=== PATIENT | female | born 1945 | race Caucasian/White ===

== ENCOUNTER 2016-09-29 10:15 | Emergency (ER) | payer MEDICARE, MEDICAID ==
[2016-09-29] MEDS ORDERED: Ketorolac INJ* 30 MG/ML 1 ML VIAL IV PUSH ONE (10:53)
[2016-09-29] MEDS ORDERED: NS 0.9% 1000 ML* 1,000 ML IV ONE (10:53)
--- NOTE | 2016-09-29 11:26 | RAD ---
CLINICAL HISTORY: Right flank pain COMPARISON: None TECHNIQUE: Multiple contiguous axial CT scans were obtained of the abdomen and pelvis, without intravenous contrast enhancement. Coronal and sagittal multiplanar reformations are submitted for review. Oral contrast was not administered. FINDINGS: The study is limited by the lack of intravenous contrast. This limits evaluation of the solid organs and vasculature. LUNG BASES: The lung bases are clear. LIVER: Multiple hepatic cysts are noted. The largest measure simple fluid in attenuation BILE DUCTS: There is no intrahepatic or extrahepatic biliary dilatation. GALLBLADDER: The gallbladder is normal, without pericholecystic inflammatory change. PANCREAS: The pancreas is normal, without mass or ductal dilatation. SPLEEN: Normal in size and appearance. UPPER GI TRACT: Evaluation of the gastrointestinal tract is limited by incomplete gastric distention. The upper GI tract is unremarkable. SMALL BOWEL AND MESENTERY: The small bowel is normal in contour, course, and caliber. There is no obstruction or dilatation. COLON: The colon is normal in contour, course, caliber. There is no pericolonic inflammatory change. ADRENALS: Normal bilaterally. KIDNEYS: There are bilateral renal calyceal stones measuring up to 0.5 cm in size. There is no appreciable hydronephrosis BLADDER: The bladder is smooth in contour. PELVIC ORGANS: The uterus and adnexa are grossly normal for technique. AORTA: There is calcific atherosclerotic disease of the abdominal aorta and its branches, without aneurysmal dilatation IVC: Unremarkable LYMPH NODES: There is no lymphadenopathy by size criteria. ABDOMINAL WALL: There is no evidence for abdominal wall hernia. BONES AND SOFT TISSUES: There is diffuse osteopenia. Degenerative changes are noted of the spine, with narrowing of central canal at L3-L4, L4-L5, and to a lesser extent at L5-S1 OTHER: None IMPRESSION: BILATERALLY NEPHROLITHIASIS WITHOUT HYDRONEPHROSIS.
[2016-09-29 11:30] LABS: Hematocrit 38 % (35-47); Mean Corpuscular HGB Conc 34 g/dl (31-36); Mean Corpuscular Hemoglobin 30 pg (27-31); Mean Corpuscular Volume 88 fL (80-97); Mean Platelet Volume 9 um3 (7.4-10.4); Red Blood Count 4.34 10^6/ul (4.0-5.4); Red Cell Distribution Width 13 % (10.5-15)
[2016-09-29 11:36] LABS: Urine Bacteria Absent (Absent); Urine Bilirubin Negative (Negative); Urine Glucose Negative (Negative); Urine Nitrite Negative (Negative)
[2016-09-29 11:50] LABS: BUN/Creatinine Ratio 19.9 (8-20); Potassium 3.9 mmol/L (3.5-5.0)
[2016-09-29 11:51] LABS: Albumin 3.7 g/dL (3.2-5.2); C Reactive Protein 1.31 mg/L (< 5.00); Calcium 8.8 mg/dL (8.6-10.3); EGFR African American 29.5 (>60); Globulin 2.4 g/dL (2-4); Total Bilirubin 0.4 mg/dL (0.2-1.0); Total Protein 6.1 g/dL (6.4-8.9)
[2016-09-29] MEDS ORDERED: Morphine INJ* 4 MG/ML 1 ML SYRINGE IV ONE (12:09)
[2016-09-29] MEDS ORDERED: LORazepam TAB(*) 1 MG PO ONE (13:37)
[2016-09-29 14:24] VITALS: BP 125/74
--- NOTE | 2016-09-29 17:01 | ED ---
Elder Stephen Billy, scribed for Angus Dave MD on 09/29/16 at 1107 . GI/ HPI - HPI Summary HPI Summary: Patient is a 71 year-old female coming to [facility] for evaluation of pain in the right flank this morning. Pain severity 7/10. She states that he pain feels like previous kidney stones, last stone was 4 months ago. She denies nausea, vomiting, diarrhea, or fever. However, she has had dysuria and burning with urination. Denies abdominal pain. - History of Current Complaint Chief Complaint: EDFlankPain Time Seen by Provider: 09/29/16 10:44 Stated Complaint: RT FLANK PAIN Hx Obtained From: Patient Onset/Duration: Started Hours Ago Timing: Constant Severity: Moderate Current Severity: Moderate Pain Intensity: 7 Location of Pain: Flank Associated Signs and Symptoms: Positive: Dysuria. Negative: Nausea, Vomiting, Diarrhea, Fever, Abdominal Pain Aggravating Factor(s): Nothing Alleviating Factor(s): Nothing - Allergy/Home Medications Allergies/Adverse Reactions: Allergies Allergy/AdvReac Type Severity Reaction Status Date / Time Penicillins [PCN] Allergy Unknown Verified 09/29/16 11:03 Reaction Details PMH/Surg Hx/FS Hx/Imm Hx History: Reports: Hx Kidney Stones Psychiatric History: Reports: Hx Depression, Hx Post Traumatic Stress Disorder Infectious Disease History: No Infectious Disease History: Denies: Traveled Outside the [place] in Last 30 Days - Family History Known Family History: Positive: Diabetes - Social History Alcohol Use: None Hx Substance Use: No Substance Use Type: Reports: None Hx Tobacco Use: No Smoking Status (MU): Never Smoked Tobacco Review of Systems Negative: Fever Negative: Abdominal Pain, Vomiting, Diarrhea, Nausea Positive: burning, dysuria All Other Systems Reviewed And Are Negative: Yes Physical Exam - Summary Physical Exam Summary: VITAL SIGNS: Reviewed. GENERAL: Patient is a well developed and nourished female who is lying comfortable in the stretcher. Patient is not in any acute respiratory distress. HEAD AND FACE: Normocephalic and atraumatic. EYES: PERRLA, EOMI x 2, No injected conjunctiva. EARS: Hearing grossly intact. Ear canals and tympanic membranes are WNL. MOUTH: Oropharynx within normal limits. NECK: Supple, trachea is midline, no adenopathy, no JVD. CHEST: Symmetric, no tenderness at palpation LUNGS: Clear to auscultation bilaterally. No wheezing or crackles. CVS: RRR,, S1 and S2 present, no murmurs or gallops appreciated. ABDOMEN: Soft, non-tender. No signs of distention. Positive bowel sounds. No rebound no guarding, and no masses palpated. No abdominal bruit or pulsations. Positive right CVAT's EXTREMITIES: FROM in all major joints, no edema, no cyanosis or clubbing. NEURO: Alert and oriented x 3. No acute neurological deficits. Speech is normal. SKIN: Dry and warm Triage Information Reviewed: Yes Vital Signs On Initial Exam: Initial Vitals Temp Pulse Resp BP Pulse Ox 97.7 F 66 16 104/51 100 09/29/16 10:45 09/29/16 10:45 09/29/16 10:45 09/29/16 10:45 09/29/16 10:45 Vital Signs Reviewed: Yes Diagnostics - Vital Signs Vital Signs Temp Pulse Resp BP Pulse Ox 09/29/16 10:45 97.7 F 66 16 104/51 100 - Laboratory Result Diagrams: 09/29/16 11:10 09/29/16 11:10 Lab Statement: Any lab studies that have been ordered have been reviewed, and results considered in the medical decision making process. - CT Abd/pel wo CT Interpretation Completed By: Radiologist - Bilateral nephrolithiasis without hydronephrosis. Re-Evaluation - Re-Evaluation First Eval Re-Evaluation Time: 13:10 Change: Improved Comment: Labs and imaging reviewed with the patient. She is comfortably eating and drinking. GIGU Course/Dx - Course Assessment/Plan: Patient is a 71 year-old female coming to [facility] for evaluation of pain in the right flank this morning. Pain severity 7/10. She states that he pain feels like previous kidney stones, last stone was 4 months ago. She denies nausea, vomiting, diarrhea, or fever. However, she has had dysuria and burning with urination. Denies abdominal pain. Test results WNL except for increased BUN /Creatinine of 42/2.11 consistent with her chronic renal failure. UA with contamination, which we will send for cultures. CT shows bilateral nephrolithiasis without hydronephrosis.. In the ED course, the patient was given IV fluids, morphine for the pain, and her symptoms improved. Since there is no urolithiasis, I will discharge the patient home to follow up with PCP. She requested for a several tablets of Ativan for her anxiety until she can see her primary care physician. As such, she was given 9 tablets and she will be discharged home to follow up with PCP. The patient is hemodynamically stable, A& Ox3. - Diagnoses Differential Diagnoses - Female: Renal Calculi, Renal Colic, Urinary Tract Infection Provider Diagnoses: Nephrolithiasis Discharge - Discharge Plan Condition: Stable Disposition: HOME Prescriptions: Lorazepam [Ativan 0.5 MG TAB] 1.5 mg PO DAILY #9 tab MDD max 1.5 mg QD Patient Education Materials: Kidney Stones (ED) Referrals: [facility] [Outside] The documentation as recorded by the Elder hanks Billy accurately reflects the service I personally performed and the decisions made by me, Angus Dave MD.
== END 2016-09-29 14:20 | disposition home or self-care (01) ==
LOC: ED 10:15
DX: N20.0 Calculus of kidney (principal); R30.0 Dysuria
CPT/HCPCS: 36415; 74176; 80053; 81003; 81015; 83605; 83690; 85025; 86140; 87086; 96374; 96375; 99283; A9270-GY; J1885; J2270